=== PATIENT | male | born 1995 | race African-American/Black ===

== ENCOUNTER 2018-11-21 18:46 | Emergency (ER) | payer MEDICAID ==
[~2018-11-21] VITALS: Ht 185.4 cm; Wt 79.0 kg
[2018-11-21] MEDS ORDERED: ALBUTEROL (0.083%) 2.5MG/3ML NEB HHN STA (20:02)
[2018-11-21] MEDS ORDERED: PREDNISONE 20MG TABLET PO STA (20:02)
[2018-11-21] MEDS ORDERED: IPRATROPIUM BROMIDE (0.02%) 0.5MG/2.5ML NEB HHN STA (20:02)
[2018-11-21 23:10] VITALS: BP 130/90
== END 2018-11-21 23:31 | disposition home or self-care (01) ==
LOC: ER 18:46
DX: J45.901 Unspecified asthma with (acute) exacerbation (principal)
CPT/HCPCS: 71045; 93005; 94644; 99285; J7512; J7611

== ENCOUNTER 2018-12-26 10:28 | Emergency (ER) | payer MEDICAID ==
[~2018-12-26] VITALS: Ht 185.4 cm; Wt 82.0 kg
[2018-12-26] MEDS ORDERED: METHYLPREDNISOLONE SOD SUCC 125 MG/2 ML VIAL IV ONE (11:00)
[2018-12-26] MEDS ORDERED: ALBUTEROL (0.083%) 2.5MG/3ML NEB HHN ONE ×2 (11:00→11:45)
[2018-12-26 12:10] VITALS: BP 133/88
== END 2018-12-26 12:10 | disposition home or self-care (01) ==
LOC: ER 10:28
DX: J45.901 Unspecified asthma with (acute) exacerbation (principal)
CPT/HCPCS: 94640; 96374; 99284; J2930; J7611; Z7610